=== PATIENT | male | born 1960 | race Caucasian/White ===

== ENCOUNTER 2021-05-05 08:00 | Outpatient (CLI) | payer OTHER | END 2021-05-05 08:03 | disposition home or self-care (01) | LOC: PPH VACUNA 08:00 | PROVIDERS: ATTEND Emergency Medicine Pediatric Emergency Medicine | DX: Z23 Encounter for immunization (principal) ==

== ENCOUNTER → 2022-06-21 | Outpatient (CLI) | payer OTHER | END | disposition home or self-care (01) | LOC: PPH VACUNA 14:50 | PROVIDERS: ATTEND Emergency Medicine Pediatric Emergency Medicine | DX: Z23 Encounter for immunization (principal) ==

== ENCOUNTER 2022-08-09 09:45 | Outpatient (CLI) | payer OTHER | END 2022-08-09 09:49 | disposition home or self-care (01) | LOC: SONOGRAMA 09:45 | DX: R10.11 Right upper quadrant pain (principal) ==

== ENCOUNTER 2023-02-15 10:03 | Outpatient (CLI) | payer OTHER | END 2023-02-15 10:07 | disposition home or self-care (01) | LOC: MRI 10:03 | PROVIDERS: ATTEND Specialist | DX: G20 Parkinson's disease (principal) | CPT/HCPCS: 70551 ==

== ENCOUNTER 2025-07-02 06:00 | Day surgery (SDC) | payer OTHER ==
[2025-06-24 09:02] VITALS: BP 137/90
[2025-06-24 09:05] LABS: URINE APPEARANCE Cloudy; URINE BILIRRUBIN Negative (NEGATIVE); URINE BLOOD Negative; URINE COLOR Yellow; URINE GLUCOSE Negative (NEGATIVE); URINE KETONE Negative (NEGATIVE); URINE LEUKOCYTE Negative; URINE NITRATE Negative; URINE PROTEIN Negative (NEGATIVE); URINE UROBILINOGEN 0.2 E.U./dl
[2025-06-24 09:06] LABS: URINE BACTERIA 10.7 uL (0.0-1933); URINE EPITHELIAL CELLS 4.4 uL (0.0-38.8); URINE RBC 7.1 uL (0.0-20.8); URINE WBC 2.9 uL (0.0-23.2)
[2025-06-24 09:11] LABS: BASO % 0.9 % (0.1-1.2); EOS # 0.28 (0.04-0.54); EOS % 6.3 % (0.7-7.0); LYMPH # 1.11 (1.18-3.74); LYMPH % 24.8 % (19.3-53.1); MEAN PLATELET VOLUME 9.70 fl (9.4-12.4); MONO # 0.46 (0.24-0.82); MONO % 10.3 % (4.7-12.5); NEUT # 2.58 (1.56-6.13); NEUT % 57.5 % (34.0-71.1); RED CELL DISTRIBUTION WIDTH 13.2 % (11.6-14.4)
[2025-06-24 09:19] LABS: URINE CAST 0.14 uL (0.0-1.40)
[2025-06-24 09:32] LABS: INR 1.06
[2025-06-24 09:35] LABS: BUN CREA RATIO 18.0 (7.0-25.0); CREATININE SERUM 0.96 mg/dL (0.70-1.30); GFR 78.13; GLUCOSE FASTING 88.0 mg/dL (65-100); OSMOLALITY SERUM 280.0 MOSM/KG (275-295)
[~2025-07-02] VITALS: Ht 170.2 cm; Wt 70.8 kg
[~2025-07-02 06:00] MED LIST: ALLEGRA ALLERG180 MG PO; COZAAR50 MG PO; LEVODOPA25 GM PO; SINGULAIR10 MG PO; TALTZ AUTO80 MG/1 ML
[2025-07-02] MEDS ORDERED: LIDOCAINE HCL 1%/EPINEPHRINE 20ML VIAL IJ ONE (08:15)
[2025-07-02] MEDS ORDERED: CEFAZOLIN SODIUM 1,000 MG VIAL IV ONE (08:15)
[2025-07-02] MEDS ORDERED: CIPROFLOXACIN HCL 0.175 MG/DR DROPS OTIC ONE (08:15)
[2025-07-02] MEDS ORDERED: POVIDONE-IODINE 118 ML BOTT TOP ONE (08:15)
[2025-07-02] MEDS ORDERED: CEPHALEXIN500 MG PO (08:47)
[2025-07-02] MEDS ORDERED: CIPROFLOXACIN2.5 ML OTIC (08:47)
== END 2025-07-02 12:00 | disposition home or self-care (01) ==
LOC: CIR.AMB 06:00
PROVIDERS: ATTEND Otolaryngology Otology & Neurotology
DX: H73.811 Atrophic flaccid tympanic membrane, right ear (principal); H72.01 Central perforation of tympanic membrane, right ear; H65.23 Chronic serous otitis media, bilateral